=== PATIENT | male | born 1945 | race Caucasian/White ===

== ENCOUNTER 2018-07-03 10:05 | Emergency (ER) | payer OTHER, MEDICARE ==
--- NOTE | 2018-07-03 10:19 | EDPHY ---
H & P Stated Complaint: l flank and abd pain hx of kidney stones Time Seen by Provider: 07/03/18 10:15 HPI/ROS: HPI: This is a 73-year-old male who presents with Chief Complaint: Left flank and left groin pain Location: Left flank and left groin Quality: Pain Duration: Starting at 6:00 a.m. Signs and Symptoms: no fever, + nausea, no vomiting, no hematemesis, no blood in stool, no abdominal bloating, no diarrhea, no back pain, no urinary symptoms , no testicular pain, + left groin no indigestion, no chest pain, no shortness of breath, no rash Timing: Sudden onset Severity: 10/16 Context: Patient has a history of kidney stones approximately 15 years ago, presents with sudden onset around 6:00 a.m. While urinating of left flank pain that has since radiated into his left lower back and into his left groin. He reports that he has urinated a total of 2 times prior to arrival to the emergency room and a small amount of urine upon arrival to the emergency room. He does complain of some nausea but denies fever, vomiting, diarrhea. Patient reports that 15 years ago he was seen in this emergency room and was given medications and was able to pass the stone on his own. Modifying Factors: None Comment: ROS: A comprehensive 10 system review of systems is otherwise negative aside from elements mentioned in the history of present illness. MEDICAL/SURGICAL/SOCIAL HISTORY: Medical history: Hyperlipidemia, history of kidney stones Surgical history: Back surgery Social history: Employed, , nonsmoker. Family history noncontributory. CONSTITUTIONAL: Mild distress, pacing around room, holding left flank, polite and cooperative elderly white male, at bedside, awake and alert HEENT: Atraumatic and normocephalic, PERRL, EOMI. Nares patent; no rhinorrhea; no nasal mucosal edema. Tympanic membranes clear. Oropharynx clear, no exudate and moist pink mucosa. Airway patent. No lymphadenopathy. No meningismus. Cardiovascular: Normal S1/S2, regular rate, regular rhythm, without murmur rub or gallop. PULMONARY/CHEST: Symmetrical and nontender. Clear to auscultation bilaterally. Good air movement. No accessory muscle usage. ABDOMEN: Soft, nondistended, left lower quadrant and left flank moderate tenderness, no rebound, + guarding, no peritoneal signs, no masses or organomegaly. No CVAT. EXTREMITIES: 2/2 pulses, strength 5/5, no deformities, no clubbing, no cyanosis or edema. NEUROLOGICAL: no focal neuro deficits. GCS 15. SKIN: Warm and dry, no erythema. no rash. Good capillary refill. Source: Patient, Family () Exam Limitations: No limitations - Personal History Current Tetanus Diphtheria and Acellular Pertussis (TDAP): Yes - Medical/Surgical History Hx Asthma: No Hx Chronic Respiratory Disease: No Hx Diabetes: No Hx Cardiac Disease: No Hx Renal Disease: No Hx Cirrhosis: No Hx Alcoholism: No Hx HIV/AIDS: No Hx Splenectomy or Spleen Trauma: No Other PMH: kidney stones back surg - Social History Smoking Status: Never smoked Constitutional: Initial Vital Signs Temperature (C) 36.5 C 07/03/18 10:07 Heart Rate 65 07/03/18 10:07 Respiratory Rate 18 07/03/18 10:07 Blood Pressure 151/79 H 07/03/18 10:07 O2 Sat (%) 98 07/03/18 10:07 O2 Delivery Mode Room Air Allergies/Adverse Reactions: No Known Allergies Allergy (Unverified 07/03/18 10:07) Home Medications: Medication Instructions Recorded Ondansetron Odt [Zofran Odt 4 mg 4 mg PO Q4 PRN #12 tab 07/03/18 (*)] SIMVASTATIN 07/03/18 Tamsulosin HCl [Flomax 0.4 MG (*)] 0.4 mg PO DAILY #10 cap 07/03/18 oxyCODONE/APAP 5/325 [Percocet 1 - 2 tab PO Q4H PRN #10 tab 07/03/18 5/325 (*)] Medical Decision Making - Diagnostics Imaging Results: Imaging Impressions Abdomen/Pelvis CT 07/03/18 10:21 Impression: 1. 5 mm distal left ureteral stone with mild to moderate obstructive uropathy and forniceal rupture. 2. Dilated appendix without secondary evidence of appendicitis. While this may be a normal, prominent appendix, mucocele of the appendix or other etiology for appendiceal enlargement cannot be excluded. Recommend surgical consultation. At a minimum, follow up CT in 3 months is recommended. 3. Additional findings as above. Findings discussed with Janice Díaz 07/03/2018 at 11:14. Attention: This CT examination is specifically designed to evaluate patients who are clinically suspected of having acute obstructive uropathy. This examination does not use radiographic contrast and provides only a limited evaluation of the abdomen, pelvis and retroperitoneum. If there is further clinical suspicion for pathological conditions other than obstructive uropathy, a complete CT evaluation of the abdomen and pelvis utilizing intravenous and enteric contrast should be considered. ED Course/Re-evaluation: Vital signs reviewed and show elevated blood pressure. IV access, laboratory studies, urinalysis, CT abdomen and pelvis scan without contrast ordered Patient given 1 L normal saline, IV Toradol 30 mg, IV Zofran 4 mg, IV Dilaudid 0.5 mg 1035: Urinalysis shows 1+ ketones, trace LE, 3-5 RBC Laboratory studies reviewed. No signs of leukocytosis/anemia/platelet dysfunction/CB/electrolyte imbalance. Creatinine 1.1 1115: Notified by Radiology, Dr. Murdock, CT abdomen and pelvis scan shows 5 mm stone located in the left ureter approximately 5 cm above the bladder with moderate hydronephrosis. Incidental finding of appendix measuring 10 mm but no secondary signs of appendicitis. Recommend outpatient General surgery follow- up with serial imaging. 1130: Reassessed patient who reports 50% relief of symptoms and pain. Given Flomax and a strainer. Patient is appropriate for discharge home with pain medications, antiemetics and urology follow-up. This patient was seen under the supervision of my secondary supervising physician. I evaluated care for this patient with attending. Differential Diagnosis: Flank pain including but not limited to musculoskeletal causes, kidney stone, pyelonephritis, shingles, and intra-abdominal causes such as diverticulitis and appendicitis. - Data Points Laboratory Results: Laboratory Results 07/03/18 10:15 07/03/18 10:15 07/03/18 07/03/18 07/03/18 10:15 10:15 10:15 WBC 7.89 10^3/uL 10^3/uL (3.80-9.50) RBC 5.09 10^6/uL 10^6/uL (4.40-6.38) Hgb 16.3 g/dL g/dL (13.7-17.5) Hct 46.8 % % (40.0-51.0) MCV 91.9 fL fL (81.5-99.8) MCH 32.0 pg pg (27.9-34.1) MCHC 34.8 g/dL g/dL (32.4-36.7) RDW 13.2 % % (11.5-15.2) Plt Count 199 10^3/uL 10^3/uL (150-400) MPV 10.4 fL fL (8.7-11.7) Neut % (Auto) 84.4 % H % (39.3-74.2) Lymph % (Auto) 9.5 % L % (15.0-45.0) Cecil % (Auto) 5.4 % % (4.5-13.0) Eos % (Auto) 0.3 % L % (0.6-7.6) Baso % (Auto) 0.3 % % (0.3-1.7) Nucleat RBC Rel Count 0.0 % % (0.0-0.2) Absolute Neuts (auto) 6.66 10^3/uL H 10^3/uL (1.70-6.50) Absolute Lymphs (auto) 0.75 10^3/uL L 10^3/uL (1.00-3.00) Absolute Monos (auto) 0.43 10^3/uL 10^3/uL (0.30-0.80) Absolute Eos (auto) 0.02 10^3/uL L 10^3/uL (0.03-0.40) Absolute Basos (auto) 0.02 10^3/uL 10^3/uL (0.02-0.10) Absolute Nucleated RBC 0.00 10^3/uL 10^3/uL (0-0.01) Immature Gran % 0.1 % % (0.0-1.1) Immature Gran # 0.01 10^3/uL 10^3/uL (0.00-0.10) Sodium 138 mEq/L mEq/L (135-145) Potassium 3.9 mEq/L mEq/L (3.5-5.2) Chloride 99 mEq/L mEq/L (97-110) Carbon Dioxide 25 mEq/l mEq/l (22-31) Anion Gap 14 mEq/L mEq/L (6-14) BUN 18 mg/dL mg/dL (7-23) Creatinine 1.1 mg/dL mg/dL (0.7-1.3) Estimated GFR > 60 Glucose 127 mg/dL H mg/dL (70-100) Calcium 9.6 mg/dL mg/dL (8.5-10.4) Urine Color YELLOW Urine Appearance CLEAR Urine pH 5.0 (5.0-7.5) Ur Specific Hood 1.020 (1.002-1.030) Urine Protein NEGATIVE (NEGATIVE) Urine Ketones 1+ H (NEGATIVE) Urine Blood NEGATIVE (NEGATIVE) Urine Nitrate NEGATIVE (NEGATIVE) Urine Bilirubin NEGATIVE (NEGATIVE) Urine Urobilinogen NEGATIVE EU EU (0.2-1.0) Ur Leukocyte Esterase TRACE H (NEGATIVE) Urine RBC 3-5 /hpf H /hpf (0-3) Urine WBC 1-3 /hpf /hpf (0-3) Ur Epithelial Cells NONE SEEN /lpf /lpf (NONE-1+) Urine Mucus TRACE /lpf /lpf (NONE-1+) Urine Glucose NEGATIVE (NEGATIVE) Medications Given: Discontinued Medications Hydromorphone HCl (Dilaudid) 0.5 mg IVP EDNOW ONE Stop: 07/03/18 10:22 Last Admin: 07/03/18 10:33 Dose: 0.5 mg Sodium Chloride (Ns) 1,000 mls @ 0 mls/hr IV ONCE ONE; Wide Open PRN Reason: Protocol Stop: 07/03/18 10:22 Last Admin: 07/03/18 10:33 Dose: 1,000 mls Ketorolac Tromethamine (Toradol) 30 mg IVP EDNOW ONE Stop: 07/03/18 10:22 Last Admin: 07/03/18 10:38 Dose: 30 mg Ondansetron HCl (Zofran) 4 mg IVP EDNOW ONE Stop: 07/03/18 10:22 Last Admin: 07/03/18 10:32 Dose: 4 mg Tamsulosin HCl (Flomax) 0.4 mg PO EDNOW ONE Stop: 07/03/18 11:15 Last Admin: 07/03/18 11:19 Dose: 0.4 mg Departure - Departure Disposition: Home, Routine, Self-Care Clinical Impression: Renal colic on left side, Ureterolithiasis, Disorder of appendix Condition: Good Instructions: Kidney Stones (ED), Renal Colic (ED), Ureteral Stones (ED) Additional Instructions: Consume a minimum of 8-10 glasses of water or electrolyte fluid replacement drinks that include Gatorade, Powerade, Pedialyte. Take Zofran 1 tab every 4 hours as needed for nausea, vomiting. Take Tylenol 650 mg every 4 hours and/or Ibuprofen 600 mg every 8 hours with food as needed for pain. Use Percocet every 6 hours as needed for severe/break through pain. Do not use Tylenol and Percocet concomitantly. Take Flomax daily until the stone passes. Follow-up with Urology in the next 1-[address] scan today, appendix is enlarged at 10 mm. Please follow-up with General surgery to discuss enlarged appendix and serial imaging. Return to the Emergency Room if symptoms do not resolve in the next 48-72 hours , you spike a fever > 102 F, or experience intractable abdominal pain/nausea/ vomiting. Referrals: Itzel James MD [Primary Care Provider] - As per Instructions Herson Lawson MD [Medical Doctor] - As per Instructions Neymar Henderson MD [Medical Doctor] - As per Instructions Prescriptions: Ondansetron Odt [Zofran Odt 4 mg (*)] 4 mg PO Q4 PRN #12 tab PRN Reason: Nausea/Vomiting, Use 1st oxyCODONE/APAP 5/325 [Percocet 5/325 (*)] 1 - 2 tab PO Q4H PRN #10 tab PRN Reason: Pain, Severe Tamsulosin HCl [Flomax 0.4 MG (*)] 0.4 mg PO DAILY #10 cap
[2018-07-03] MEDS ORDERED: KETOROLAC 30 MG/1 ML SDV IVP ONE (10:21)
[2018-07-03] MEDS ORDERED: NS 1,000 ML IV ONE (10:21)
[2018-07-03] MEDS ORDERED: HYDROmorphONE/DILAUDID 2 MG/ML INJ IVP ONE (10:21)
[2018-07-03] MEDS ORDERED: ONDANSETRON 4 MG/2 ML VIAL IVP ONE (10:21)
[2018-07-03 10:31] LABS: PLATELET COUNT 199 10^3/uL (150-400)
[2018-07-03] MEDS ORDERED: TAMSULOSIN HCL 0.4 MG CAP PO ONE (11:14)
[2018-07-03 12:16] VITALS: BP 125/79
== END 2018-07-03 12:16 | disposition home or self-care (01) ==
DX: N20.1 Calculus of ureter (principal); K38.9 Disease of appendix, unspecified; E78.5 Hyperlipidemia, unspecified; Z87.442 Personal history of urinary calculi
CPT/HCPCS: 74176; 96374; 96375; 99285; J1170; J1885; J2405